=== PATIENT | female | born 1965 | race Two or more races ===

== ENCOUNTER 2018-07-12 13:27 | Emergency (ER) | payer OTHER ==
[~2018-07-12] VITALS: Ht 149.9 cm; Wt 60.8 kg
[2018-07-12] MEDS ORDERED: TAMOXIFEN CITRA10 MG ORAL (13:36)
[2018-07-12 13:46] VITALS: BP 120/82
[2018-07-12] MEDS ORDERED: VERTICALM25 MG ORAL (14:24)
--- NOTE | 2018-07-12 14:24 | Emergency Room Report ---
History of Present Illness General Chief Complaint: Dizziness Present Illness HPI 53 YO Female presents to the ED c/o chills and having episodes of dizziness that she describes as the room spinning around her. Pt. had first episode when she awoke 3 days ago. pt. states her symptoms have almost resolved however her daughter wanted her to get checked out. denies nausea, vomiting, fevers, recent head injury. Patient does report left ear pain and moderate nasal congestion x 5 days. Denies visual changes or difficulty hearing. reports getting up out of bed and looking from side to side was exacerbating her symptoms. Pt. has hx of breast cancer that is in remission s/p bilateral mastectomy 3 years ago. She denies weakness, or difficulty with speech. Denies dizziness when looking up. Denies CP, Palpitations, LOC, AMS, Changes in Vision, Sensation, paresthesias, or a sudden severe headache. Allergies: Coded Allergies: CEPHALEXIN (Verified Allergy, Unknown, 07/12/18) CEPHALOSPORINS (Verified Allergy, Unknown, 07/12/18) CODEINE (Verified Allergy, Unknown, 07/12/18) DOCUSATE (Verified Allergy, Unknown, 07/12/18) Patient History Past Medical History: see triage record Past Surgical History: none Pertinent Family History: none Last Menstrual Period: 07/2015 Now: No Reviewed Nursing Documentation: PMH: Agreed; PSxH: Agreed Nursing Documentation-PMH Hx Cancer: Yes - bilateral breast Review of Systems All Other Systems: negative except mentioned in HPI Physical Exam Vital Signs Date Time Temp Pulse Resp B/P (MAP) Pulse Ox O2 Delivery O2 Flow Rate FiO2 07/12/18 13:31 98.1 83 18 120/82 96 Room Air Medical Decision Making PA Attestation Dr. Palmer is my supervising Physician whom patient management has been discussed with. Diagnostic Impression: Primary Impression: Dizziness Additional Impression: Vertigo ER Course 53 YO Female presents to the ED c/o chills and having episodes of dizziness that she describes as the room spinning around her. Pt. had first episode when she awoke 3 days ago. pt. states her symptoms have almost resolved however her daughter wanted her to get checked out. denies nausea, vomiting, fevers, recent head injury. Patient does report left ear pain and moderate nasal congestion x 5 days. Denies visual changes or difficulty hearing. reports getting up out of bed and looking from side to side was exacerbating her symptoms. Pt. has hx of breast cancer that is in remission s/p bilateral mastectomy 3 years ago. She denies weakness, or difficulty with speech. Denies dizziness when looking up. Denies CP, Palpitations, LOC, AMS, Changes in Vision, Sensation, paresthesias, or a sudden severe headache. Ddx considered but are not limited to Mnire's, BPPV, labrinitis, cerebellar stroke, hypovolemia, cardiac cause, metastasis just to name a few. Vital signs: are WNL, pt. is afebrile H&PE are most consistent with :peripheral vertigo. no cardiac hx, stroke or metastasis was suspected due to cancer hx however HPI and PE put these at lower suspicion at this time. No cardiac HX . NO hx of volume loss. ORDERS: None at this time. Pt. physical exam is consistent with peripheral vertigo. no cardiac hx. ED INTERVENTIONS: DISCHARGE: At this time pt. is stable for d/c to home. Will provide printed patient care instructions, and any necessary prescriptions. Care plan and follow up instructions have been discussed with the patient prior to discharge. Last Vital Signs Date Time Temp Pulse Resp B/P (MAP) Pulse Ox O2 Delivery O2 Flow Rate FiO2 07/12/18 13:46 83 18 Room Air 07/12/18 13:46 98.1 120/82 96 Disposition: HOME, SELF-CARE Condition: Stable Scripts Meclizine Hcl* (VERTICALM*) 25 Mg Tablet 25 MG ORAL THREE TIMES A DAY, #15 TAB Prov: Vandana Pastor 07/12/18 Referrals: NON PHYSICIAN (PCP) Patient Instructions: Metastatic Brain Tumor, Stroke Prevention, [id number], Vertigo Additional Instructions: Take medications as directed. The information provided is to educate you on possible causes of your symptoms if they are not resolving with medication. If they are not responding, of you experience new or worsening of symptoms, Return promptly to the Emergency Department. Follow up with a Primary Care Provider in 3-5 days Discuss your recent symptoms to determine if further investigation is necessary such as Neurology referral or Oncology Evaluation, even if your symptoms have resolved. . Do not drink alcohol, drive, or operate heavy machinery while taking Meclizine as this may cause drowsiness. - Please note that this Emergency Department Report was dictated using Dragon clothing consultant technology software, occasionally this can lead to erroneous entry secondary to interpretation by the dictation equipment. Vandana Pastor Jul 12, 2018 14:24
[2018-07-12] MEDS ORDERED: Meclizine 25mg tab ORAL PRN (14:30)
[2018-07-12 14:49] VITALS: BP 120/82
== END 2018-07-12 14:55 | disposition home or self-care (01) ==
LOC: EMR 14:02
DX: R42 Dizziness and giddiness (principal); Z88.1 Allergy status to other antibiotic agents; Z88.5 Allergy status to narcotic agent; Z80.3 Family history of malignant neoplasm of breast
CPT/HCPCS: 99282